=== PATIENT | male | born 1940 | race African-American/Black ===

== ENCOUNTER 2017-12-13 08:31 | Emergency (ER) | payer OTHER, MEDICAID ==
[~2017-12-13] VITALS: Ht 182.9 cm; Wt 94.0 kg
[~2017-12-13 08:31] MED LIST: ALLO300T2 PO; ASPI-1159 PO; ATOR40TA70 PO; COR25 PO; GABA-533 PO; LOSA100T14 PO; TICA90TA PO
[2017-12-13 10:40] LABS: BASOPHILS % 0.5 % (0.0-2.0); EOSINOPHILS % 1.6 % (0.0-5.0); HEMATOCRIT. 37.3 % (42.0-52.0); HEMOGLOBIN. 12.7 g/dL (14.0-18.0); LYMPHOCYTES % 10.3 % (20.0-50.0); MEAN CORPUSCULAR HEMOGLOBIN 29.3 pg (28.0-32.0); MEAN CORPUSCULAR VOLUME 86.4 fL (80.0-94.0); MEAN PLATELET VOLUME 7.4 fl (7.4-10.4); MONOCYTES % 5.7 % (2.0-8.0); NEUTROPHILS % 81.9 % (40.0-76.0); PLATELET 294 x1000/uL (130-400); RED BLOOD CELL COUNT 4.32 mill/uL (4.7-6.1); RED CELL DISTRIBUTION WIDTH 16.5 % (11.6-14.6)
[2017-12-13 10:46] LABS: INR 1.1; PROTHROMBIN TIME 11.2 sec (9.1-11.1)
[2017-12-13 10:47] LABS: CHLORIDE 104 mEq/L (98-107)
[2017-12-13] MEDS ORDERED: CLONIDINE 0.1MG TABLET PO ONE (13:15)
[2017-12-13] MEDS ORDERED: HYDRALAZINE 20MG/ML VIAL IV PRN (13:15)
[2017-12-13] MEDS ORDERED: APIXABAN 5 MG TABLET PO STA (14:43)
[2017-12-13] MEDS ORDERED: APIXABAN 5 MG TABLET PO SCH (14:45)
[2017-12-13 15:18] LABS: BG BASE EXCESS 0.6 mmol/L (-2.0-2.0); BG CARBOXYHEMOGLOBIN 0.2 % (0.5-1.5); BG DEOXYHEMOGLOBIN 4.5 % (0.0-5.0); BG FRACTION INSPIRED OXYGEN 21; BG HCO3 ACT 23.8 mmol/L (22.0-26.0); BG METHEMOGLOBIN 0.3 % (0.0-1.5); BG OXYGEN SATURATION 95.5 % (92.0-98.5); BG PCO2 33.7 mmHg (35.0-45.0); BG PH 7.467 (7.350-7.450); BG PO2 78.8 mmHg (75.0-100.0); BG SAMPLE SITE RIGHT BRACHIAL; BG TOTAL HEMOGLOBIN 13.2 g/dL (12.0-18.0); BG VENT MODE ROOM AIR
[2017-12-13 15:49] VITALS: BP 168/78
== END 2017-12-13 15:52 | disposition home or self-care (01) ==
LOC: ER 08:50
DX: J44.1 Chronic obstructive pulmonary disease with (acute) exacerbation (principal); R06.00 Dyspnea, unspecified; I11.0 Hypertensive heart disease with heart failure; I50.33 Acute on chronic diastolic (congestive) heart failure; R74.0 Nonspecific elevation of levels of transaminase and lactic acid dehydrogenase [LDH]; N28.89 Other specified disorders of kidney and ureter; N39.0 Urinary tract infection, site not specified; B96.1 Klebsiella pneumoniae [K. pneumoniae] as the cause of diseases classified elsewhere; E78.00 Pure hypercholesterolemia, unspecified; I25.2 Old myocardial infarction; Z86.73 Personal history of transient ischemic attack (TIA), and cerebral infarction without residual deficits; Z86.711 Personal history of pulmonary embolism; Z85.46 Personal history of malignant neoplasm of prostate; Z95.5 Presence of coronary angioplasty implant and graft; Z79.82 Long term (current) use of aspirin; Z79.01 Long term (current) use of anticoagulants
CPT/HCPCS: 36415; 36600; 71045; 80053; 82375; 82805; 83880; 84484; 85025; 85610; 93005; 96374; 99285; J0360

== ENCOUNTER 2018-01-08 12:06 | Emergency (ER) | payer OTHER, MEDICAID ==
[~2018-01-08] VITALS: Ht 182.9 cm; Wt 89.0 kg
[2018-01-08 14:33] VITALS: BP 128/78
== END 2018-01-08 14:52 | disposition home or self-care (01) ==
LOC: ER 12:06
DX: K62.5 Hemorrhage of anus and rectum (principal); K59.00 Constipation, unspecified; I10 Essential (primary) hypertension; Z98.890 Other specified postprocedural states; Z79.82 Long term (current) use of aspirin; Z79.899 Other long term (current) drug therapy
CPT/HCPCS: 99283

== ENCOUNTER 2019-01-01 10:20 | Emergency (ER) | payer OTHER, MEDICAID ==
[~2019-01-01] VITALS: Ht 182.9 cm; Wt 90.0 kg
[~2019-01-01 10:20] MED LIST changes: -ASPI-1159 PO; +ASPI-1393 PO; -LOSA100T14 PO; +LOSA100T32 PO
[2019-01-01] MEDS ORDERED: TRAMADOL 50MG TABLET PO ONE (11:30)
[2019-01-01 11:45] VITALS: BP 131/62
== END 2019-01-01 12:04 | disposition home or self-care (01) ==
LOC: ER 10:20
DX: M79.18 Myalgia, other site (principal); M54.5 Low back pain; R10.31 Right lower quadrant pain; R10.32 Left lower quadrant pain; I11.9 Hypertensive heart disease without heart failure; I25.2 Old myocardial infarction; Z79.82 Long term (current) use of aspirin; Z79.899 Other long term (current) drug therapy
CPT/HCPCS: 99283

== ENCOUNTER 2019-01-24 08:54 | Emergency (ER) | payer OTHER, MEDICAID ==
[~2019-01-24] VITALS: Ht 182.9 cm; Wt 97.0 kg
[2019-01-24 11:35] LABS: BASOPHILS % 0.7 % (0.0-2.0); EOSINOPHILS % 2.1 % (0.0-5.0); HEMATOCRIT. 37.8 % (42.0-52.0); HEMOGLOBIN. 12.7 g/dL (14.0-18.0); MEAN CORPUSCULAR HEMOGLOBIN 29.5 pg (28.0-32.0); MEAN PLATELET VOLUME 7.3 fl (7.4-10.4); MONOCYTES % 6.5 % (2.0-8.0); NEUTROPHILS % 72.7 % (40.0-76.0); PLATELET 240 x1000/uL (130-400); RED CELL DISTRIBUTION WIDTH 15.8 % (11.6-14.6)
[2019-01-24 11:41] LABS: CHLORIDE 107 mEq/L (98-107)
[2019-01-24 11:59] LABS: CLARITY URINE CLEAR (CLEAR); COLOR URINE YELLOW (YELLOW); KETONES URINE NEGATIVE (NEGATIVE); LEUKOCYTE ESTERASE URINE NEGATIVE (NEGATIVE); NITRITE URINE NEGATIVE (NEGATIVE); OCCULT BLOOD URINE NEGATIVE (NEGATIVE); PROTEIN URINE NEGATIVE (NEGATIVE); SPECIFIC GRAVITY URINE 1.006 (1.005-1.030); UROBILINOGEN URINE 0.2 E.U./dL (0.2-1.0)
[2019-01-24 13:33] VITALS: BP 153/85
== END 2019-01-24 13:42 | disposition home or self-care (01) ==
LOC: ER 08:54
DX: R35.0 Frequency of micturition (principal); R10.30 Lower abdominal pain, unspecified; R11.0 Nausea; I25.2 Old myocardial infarction; I11.9 Hypertensive heart disease without heart failure; Z79.82 Long term (current) use of aspirin; Z79.899 Other long term (current) drug therapy
CPT/HCPCS: 36415; 81003; 99283

== ENCOUNTER 2019-03-16 08:55 | Emergency (ER) | payer OTHER, MEDICAID ==
[~2019-03-16] VITALS: Ht 177.8 cm; Wt 91.0 kg
[2019-03-16] MEDS ORDERED: MORPHINE SULFATE 4 MG/ML CPJ (NOT FOR IM USE) IV STA (10:56)
[2019-03-16] MEDS ORDERED: ONDANSETRON HCL 4MG/2ML INJ IV STA (10:56)
[2019-03-16] MEDS ORDERED: VANCOMYCIN 1 G PREMIX 200 ML IV SCH (11:00)
[2019-03-16] MEDS ORDERED: PIPERACILLIN/TAZ 3.375G PREMIX 50 ML IV ONE (11:00)
[2019-03-16 12:53] LABS: BASOPHILS % 0.9 % (0.0-2.0); EOSINOPHILS % 1.8 % (0.0-5.0); HEMATOCRIT. 38.3 % (42.0-52.0); HEMOGLOBIN. 13.2 g/dL (14.0-18.0); MEAN CORPUSCULAR HEMOGLOBIN 30.2 pg (28.0-32.0); MEAN CORPUSCULAR VOLUME 87.6 fL (80.0-94.0); MEAN PLATELET VOLUME 8.6 fl (7.4-10.4); MONOCYTES % 6.5 % (2.0-8.0); NEUTROPHILS % 72.8 % (40.0-76.0); PLATELET 333 x1000/uL (130-400); RED BLOOD CELL COUNT 4.37 mill/uL (4.7-6.1); RED CELL DISTRIBUTION WIDTH 16.1 % (11.6-14.6)
[2019-03-16 12:57] LABS: CHLORIDE 104 mEq/L (98-107)
[2019-03-16 12:59] LABS: PARTIAL THROMBOPLASTIN TIME 28.7 sec (23.4-31.0); PROTHROMBIN TIME 10.7 sec (9.6-11.0)
[2019-03-16 14:54] VITALS: BP 138/78
== END 2019-03-16 14:53 | disposition home or self-care (01) ==
LOC: ER 08:55
DX: L03.116 Cellulitis of left lower limb (principal); I25.10 Atherosclerotic heart disease of native coronary artery without angina pectoris; I25.2 Old myocardial infarction; I10 Essential (primary) hypertension; N40.0 Benign prostatic hyperplasia without lower urinary tract symptoms; Z79.82 Long term (current) use of aspirin; Z86.711 Personal history of pulmonary embolism
CPT/HCPCS: 36415; 80053; 85025; 85610; 85730; 87040; 93971; 96365; 96368; 96375; 99284; J2270; J2405; J2543; J3370

== ENCOUNTER 2019-04-13 08:46 | Inpatient (IN) | payer OTHER, MEDICAID ==
[~2019-04-13] VITALS: Ht 182.9 cm; Wt 104.8 kg
[~2019-04-13 08:46] MED LIST changes: -ASPI-1393 PO; +ASPI-1497 PO
[2019-04-13] MEDS ORDERED: CLINDAMYCIN 600 MG in DEXTROSE 5% WATER 50 ML IV ONE (13:30)
[2019-04-13] MEDS ORDERED: CLINDAMYCIN 600MG PREMIX 50 ML IV ONE (14:00)
[2019-04-13 14:35] LABS: BASOPHILS % 0.4 % (0.0-2.0); EOSINOPHILS % 1.8 % (0.0-5.0); HEMATOCRIT. 34.8 % (42.0-52.0); HEMOGLOBIN. 11.8 g/dL (14.0-18.0); LYMPHOCYTES % 12.2 % (20.0-50.0); MEAN CORPUSCULAR HEMOGLOBIN 29.5 pg (28.0-32.0); MEAN CORPUSCULAR VOLUME 87.4 fL (80.0-94.0); MEAN PLATELET VOLUME 6.8 fl (7.4-10.4); MONOCYTES % 6.5 % (2.0-8.0); NEUTROPHILS % 79.1 % (40.0-76.0); PLATELET 242 x1000/uL (130-400); RED BLOOD CELL COUNT 3.98 mill/uL (4.7-6.1); RED CELL DISTRIBUTION WIDTH 16.5 % (11.6-14.6)
[2019-04-13 14:45] LABS: CHLORIDE 106 mEq/L (98-107)
[2019-04-13 15:09] LABS: INR 1.1; PROTHROMBIN TIME 11.1 sec (9.6-11.0)
[2019-04-13] MEDS: LOSARTAN POTASSIUM 100 MG TABLET PO SCH (16:00)
[2019-04-13] MEDS: ASPIRIN 81MG TABLET PO SCH (16:00)
[2019-04-13] MEDS: CARVEDILOL 12.5MG TABLET PO SCH ×2 (16:00→21:00)
[2019-04-13] MEDS ORDERED: ONDANSETRON HCL 4MG/2ML INJ IV PRN (16:15)
[2019-04-13] MEDS ORDERED: IPRATROPIUM/ALBUTEROL 0.5-3(2.5)MG/3ML NEB HHN PRN (16:15)
[2019-04-13] MEDS ORDERED: ACETAMINOPHEN 325MG TABLET PO PRN (16:15)
[2019-04-13] MEDS: PIPERACILLIN SODIUM/TAZOBACTAM 4.5 G in DEXT 5% WATER 100 ML IV SCH (16:30)
[2019-04-13] MEDS ORDERED: ENOXAPARIN 40MG/0.4ML SYR SUBCUT SCH (16:45)
[2019-04-13] MEDS: FUROSEMIDE 40MG TABLET PO SCH (16:51)
[2019-04-13] MEDS: TICAGRELOR 90 MG TABLET PO SCH (17:00)
[2019-04-13] MEDS ORDERED: VANCOMYCIN 1,500 MG in SODIUM CHLORIDE 0.9% 250 ML IV SCH (17:30)
[2019-04-13] MEDS: HYDROCODONE/ACETAMINOPHEN 5/325MG TABLET PO PRN (18:19)
[2019-04-14] VITALS (7 sets, daily range): BP systolic 123–158; BP diastolic 63–96
[2019-04-14] MEDS: HYDROCODONE/ACETAMINOPHEN 5/325MG TABLET PO PRN (01:57)
[2019-04-14] MEDS: CARVEDILOL 12.5MG TABLET PO SCH ×2 (08:36→21:14)
[2019-04-14] MEDS: ASPIRIN 81MG TABLET PO SCH (08:36)
[2019-04-14] MEDS: LOSARTAN POTASSIUM 100 MG TABLET PO SCH (08:37)
[2019-04-14] MEDS: FUROSEMIDE 40MG TABLET PO SCH (08:37)
[2019-04-14] MEDS: TICAGRELOR 90 MG TABLET PO SCH ×2 (08:39→08:40)
[2019-04-14] MEDS ORDERED: APIX2.5T MT (09:52)
[2019-04-14] MEDS ORDERED: APIXABAN 5 MG TABLET PO SCH (11:15)
[2019-04-14] MEDS: VANCOMYCIN 1 G PREMIX 200 ML IV SCH (12:14)
[2019-04-14] MEDS: ENOXAPARIN 40MG/0.4ML SYR SUBCUT SCH (15:35)
[2019-04-14] MEDS: PIPERACILLIN SODIUM/TAZOBACTAM 4.5 G in DEXT 5% WATER 100 ML IV SCH (16:47)
[2019-04-14] MEDS ORDERED: FUROSEMIDE 40MG/4ML VIAL IVP NR (18:00)
[2019-04-14] MEDS: ATORVASTATIN CALCIUM 20MG TABLET PO SCH (21:14)
[2019-04-15] VITALS: BP 125/60
[2019-04-15] MEDS: VANCOMYCIN 1 G PREMIX 200 ML IV SCH ×2 (00:17→13:32)
[2019-04-15 04:00] VITALS: BP 129/58
[2019-04-15 07:59] LABS: COLOR URINE YELLOW (YELLOW); KETONES URINE NEGATIVE (NEGATIVE); LEUKOCYTE ESTERASE URINE NEGATIVE (NEGATIVE); NITRITE URINE NEGATIVE (NEGATIVE); OCCULT BLOOD URINE NEGATIVE (NEGATIVE); PROTEIN URINE NEGATIVE (NEGATIVE); SPECIFIC GRAVITY URINE 1.022 (1.005-1.030)
[2019-04-15 08:00] VITALS: BP 132/66
[2019-04-15 08:02] LABS: CLARITY URINE SL HAZY (CLEAR)
[2019-04-15] MEDS: ASPIRIN 81MG TABLET PO SCH (09:00)
[2019-04-15] MEDS: CARVEDILOL 12.5MG TABLET PO SCH ×2 (09:58→21:28)
[2019-04-15] MEDS: FUROSEMIDE 40MG TABLET PO SCH (09:58)
[2019-04-15] MEDS: LOSARTAN POTASSIUM 100 MG TABLET PO SCH (09:58)
[2019-04-15] MEDS ORDERED: LIDOCAINE HCL 1% 20ML VIAL (Pyxis) INJ ONE (11:12)
[2019-04-15 12:00] VITALS: BP 132/56
[2019-04-15] MEDS: HYDROCODONE/ACETAMINOPHEN 5/325MG TABLET PO PRN (13:33)
[2019-04-15] MEDS ORDERED: IOHEXOL-350 100 ML BOTTLE ONE (13:40)
[2019-04-15 16:00] VITALS: BP 138/69
[2019-04-15] MEDS: ENOXAPARIN 40MG/0.4ML SYR SUBCUT SCH (17:34)
[2019-04-15 20:00] VITALS: BP 149/72
[2019-04-15] MEDS: ATORVASTATIN CALCIUM 20MG TABLET PO SCH (21:27)
[2019-04-16] VITALS: BP 124/64
[2019-04-16 02:46] LABS: CHLORIDE 101 mEq/L (98-107)
[2019-04-16 02:53] LABS: LDL CHOLESTEROL 55 mg/dL (5-100)
[2019-04-16 02:54] LABS: HDL CHOLESTEROL 33 mg/dL (40-59)
[2019-04-16 02:55] LABS: T4 FREE 1.26 ng/dL (0.76-1.46)
[2019-04-16 04:00] VITALS: BP 142/66
[2019-04-16 04:19] LABS: BASOPHILS % 1.1 % (0.0-2.0); EOSINOPHILS % 0.4 % (0.0-5.0); HEMOGLOBIN. 11.8 g/dL (14.0-18.0); LYMPHOCYTES % 8.9 % (20.0-50.0); MEAN CORPUSCULAR HEMOGLOBIN 29.2 pg (28.0-32.0); MEAN PLATELET VOLUME 7.1 fl (7.4-10.4); MONOCYTES % 9.1 % (2.0-8.0); NEUTROPHILS % 80.5 % (40.0-76.0); PLATELET 271 x1000/uL (130-400); RED BLOOD CELL COUNT 4.02 mill/uL (4.7-6.1); RED CELL DISTRIBUTION WIDTH 16.4 % (11.6-14.6)
[2019-04-16 04:24] LABS: CHLORIDE 102 mEq/L (98-107)
[2019-04-16 08:00] VITALS: BP 161/69
[2019-04-16] MEDS: LOSARTAN POTASSIUM 100 MG TABLET PO SCH (08:57)
[2019-04-16] MEDS: CARVEDILOL 12.5MG TABLET PO SCH ×2 (08:58→20:35)
[2019-04-16] MEDS: VANCOMYCIN 1 G PREMIX 200 ML IV SCH ×3 (08:59→20:44)
[2019-04-16] MEDS: FUROSEMIDE 40MG TABLET PO SCH (08:59)
[2019-04-16] MEDS: ASPIRIN 81MG TABLET PO SCH (08:59)
[2019-04-16] MEDS: HYDROCODONE/ACETAMINOPHEN 5/325MG TABLET PO PRN ×2 (10:21→17:14)
[2019-04-16 12:00] VITALS: BP 135/70
[2019-04-16] MEDS ORDERED: MORPHINE SULFATE 2 MG/ML CPJ (NOT FOR IM USE) IV PRN (12:30)
[2019-04-16] MEDS: SODIUM CHLORIDE 0.45% 1,000 ML IV SCH (15:38)
[2019-04-16 16:00] VITALS: BP 154/65
[2019-04-16 20:00] VITALS: BP 123/62
[2019-04-16] MEDS: ATORVASTATIN CALCIUM 20MG TABLET PO SCH (20:35)
[2019-04-16] MEDS: ENOXAPARIN 30MG/0.3ML SYR SUBCUT SCH (20:40)
[2019-04-17] VITALS (8 sets, daily range): BP systolic 113–153; BP diastolic 47–87
[2019-04-17] MEDS: HYDROCODONE/ACETAMINOPHEN 5/325MG TABLET PO PRN ×2 (01:18→15:31)
[2019-04-17] MEDS: SODIUM CHLORIDE 0.45% 1,000 ML IV SCH ×2 (05:10→22:17)
[2019-04-17] MEDS ORDERED: HEPARIN SODIUM 1,000 UNIT/1ML VIAL IV ONE (08:55)
[2019-04-17] MEDS: LOSARTAN POTASSIUM 100 MG TABLET PO SCH (09:31)
[2019-04-17] MEDS: CARVEDILOL 12.5MG TABLET PO SCH ×2 (09:31→22:19)
[2019-04-17] MEDS: VANCOMYCIN 1 G PREMIX 200 ML IV SCH ×2 (09:31→22:17)
[2019-04-17] MEDS: ASPIRIN 81MG TABLET PO SCH (09:31)
[2019-04-17] MEDS: ENOXAPARIN 30MG/0.3ML SYR SUBCUT SCH ×2 (09:31→22:19)
[2019-04-17] MEDS ORDERED: IODIXANOL 320MG/ML 100 ML BOTTLE IV ONE (12:06)
[2019-04-17] MEDS ORDERED: LIDOCAINE HCL 1% 20ML VIAL (Pyxis) INJ ONE (12:07)
[2019-04-17] MEDS ORDERED: FENTANYL CITRATE/PF 50MCG/ML 2ML VIAL ONE (12:41)
[2019-04-17] MEDS ORDERED: MIDAZOLAM HCL 2 MG/2 ML VIAL ONE (12:41)
[2019-04-17] MEDS ORDERED: IOHEXOL-300 100 ML BOTTLE ONE (13:23)
[2019-04-17] MEDS: ATORVASTATIN CALCIUM 20MG TABLET PO SCH (22:17)
[2019-04-18] VITALS (7 sets, daily range): BP systolic 128–171; BP diastolic 56–68
[2019-04-18] MEDS: VANCOMYCIN 1 G PREMIX 200 ML IV SCH (09:39)
[2019-04-18] MEDS: ASPIRIN 81MG TABLET PO SCH ×2 (09:39→09:51)
[2019-04-18] MEDS: CARVEDILOL 12.5MG TABLET PO SCH ×2 (09:39→21:07)
[2019-04-18] MEDS: ENOXAPARIN 30MG/0.3ML SYR SUBCUT SCH (09:44)
[2019-04-18] MEDS: LOSARTAN POTASSIUM 100 MG TABLET PO SCH (09:46)
[2019-04-18 10:57] LABS: BASOPHILS % 0.3 % (0.0-2.0); EOSINOPHILS % 0.3 % (0.0-5.0); HEMATOCRIT. 30.6 % (42.0-52.0); HEMOGLOBIN. 10.6 g/dL (14.0-18.0); LYMPHOCYTES % 8.4 % (20.0-50.0); MEAN CORPUSCULAR HEMOGLOBIN 29.9 pg (28.0-32.0); MEAN CORPUSCULAR VOLUME 86.7 fL (80.0-94.0); MEAN PLATELET VOLUME 7.4 fl (7.4-10.4); MONOCYTES % 9.6 % (2.0-8.0); NEUTROPHILS % 81.4 % (40.0-76.0); PLATELET 249 x1000/uL (130-400); RED BLOOD CELL COUNT 3.53 mill/uL (4.7-6.1); RED CELL DISTRIBUTION WIDTH 16.3 % (11.6-14.6)
[2019-04-18 11:01] LABS: CHLORIDE 102 mEq/L (98-107)
[2019-04-18] MEDS: SODIUM CHLORIDE 0.9% 1,000 ML IV SCH (12:15)
[2019-04-18] MEDS: ATORVASTATIN CALCIUM 20MG TABLET PO SCH (21:05)
[2019-04-18] MEDS: AMLODIPINE 2.5MG TABLET PO SCH (21:07)
[2019-04-19] VITALS (7 sets, daily range): BP systolic 118–165; BP diastolic 66–80
[2019-04-19] MEDS ORDERED: BUPIVACAINE HCL/PF 0.5% (5MG/ML) 10ML ONE (07:06)
[2019-04-19] MEDS ORDERED: LIDOCAINE HCL 1% 20ML VIAL (Pyxis) INJ ONE (07:06)
[2019-04-19 07:44] LABS: HEMATOCRIT 28.3 % (42.0-52.0); HEMOGLOBIN 9.8 g/dL (14.0-18.0); MEAN CORPUSCULAR VOLUME 86.5 fL (80.0-94.0); PLATELET 255 x1000/uL (130-400); RED BLOOD CELL COUNT 3.28 mill/uL (4.7-6.1); RED CELL DISTRIBUTION WIDTH 16.1 % (11.6-14.6)
[2019-04-19 07:53] LABS: CHLORIDE 105 mEq/L (98-107)
[2019-04-19] MEDS ORDERED: CEFAZOLIN SODIUM 1000MG/VIAL ONE (07:57)
[2019-04-19] MEDS ORDERED: MIDAZOLAM HCL 2 MG/2 ML VIAL ONE (08:03)
[2019-04-19] MEDS: SODIUM CHLORIDE 0.9% 1,000 ML IV SCH (08:15)
[2019-04-19] MEDS ORDERED: SODIUM CHLORIDE 0.9% 1,000 ML IV ONE (08:34)
[2019-04-19] MEDS ORDERED: SODIUM HYPOCHLORITE (0.25%) 480ML SOLUTION (HALF STRENGTH) TOP NR (08:43)
[2019-04-19] MEDS ORDERED: MORPHINE SULFATE 2 MG/ML CPJ (NOT FOR IM USE) IV PRN (08:45)
[2019-04-19] MEDS ORDERED: HYDROMORPHONE HCL/PF 2MG/ML CPJ IV PRN (08:45)
[2019-04-19] MEDS ORDERED: ONDANSETRON HCL 4MG/2ML INJ IV PRN (08:45)
[2019-04-19] MEDS ORDERED: SKIN ADHESIVE 0.7 GM EA TOP ONE (09:31)
[2019-04-19] MEDS ORDERED: POTASSIUM CHLORIDE 20MEQ TABLET SR PO NR (10:45)
[2019-04-19] MEDS: ASPIRIN 81MG TABLET PO SCH (12:37)
[2019-04-19] MEDS: LOSARTAN POTASSIUM 100 MG TABLET PO SCH (12:37)
[2019-04-19] MEDS: CARVEDILOL 12.5MG TABLET PO SCH (12:40)
[2019-04-19] MEDS: AMLODIPINE 2.5MG TABLET PO SCH (12:41)
[2019-04-19] MEDS ORDERED: PIPERACILLIN/TAZOBACTAM 2.25 G in DEXTROSE 5% WATER 50 ML IV SCH (16:00)
[2019-04-19] MEDS ORDERED: CEFEPIME 1,000 MG in DEXTROSE 5% WATER 50 ML IV SCH (17:00)
== END 2019-04-19 18:12 | disposition home or self-care (01) | DRG 622 ==
LOC: ER 08:46 → 5WST 14:22 → EDBEDREQ 14:28 → ENRESERV 23:07 → 3WST 04-17 14:13
PROVIDERS: ADMIT Internal Medicine; ATTEND Internal Medicine
PROC: 02HV33Z Insertion of Infusion Device into Superior Vena Cava, Percutaneous Approach (ICD-10-PCS; 2019-04-15)
PROC: B548ZZA Ultrasonography of Superior Vena Cava, Guidance (ICD-10-PCS; 2019-04-15)
PROC: B5181ZA Fluoroscopy of Superior Vena Cava using Low Osmolar Contrast, Guidance (ICD-10-PCS; 2019-04-15)
PROC: 047D3ZZ Dilation of Left Common Iliac Artery, Percutaneous Approach (ICD-10-PCS; principal; 2019-04-17)
PROC: 047L3ZZ Dilation of Left Femoral Artery, Percutaneous Approach (ICD-10-PCS; 2019-04-17)
PROC: 047N3ZZ Dilation of Left Popliteal Artery, Percutaneous Approach (ICD-10-PCS; 2019-04-17)
PROC: 04HK33Z Insertion of Infusion Device into Right Femoral Artery, Percutaneous Approach (ICD-10-PCS; 2019-04-17)
PROC: 04HL33Z Insertion of Infusion Device into Left Femoral Artery, Percutaneous Approach (ICD-10-PCS; 2019-04-17)
PROC: B41G1ZZ Fluoroscopy of Left Lower Extremity Arteries using Low Osmolar Contrast (ICD-10-PCS; 2019-04-17)
PROC: 0JBP0ZZ Excision of Left Lower Leg Subcutaneous Tissue and Fascia, Open Approach (ICD-10-PCS; 2019-04-19)
DX: E11.622 Type 2 diabetes mellitus with other skin ulcer (principal); I50.33 Acute on chronic diastolic (congestive) heart failure; E11.52 Type 2 diabetes mellitus with diabetic peripheral angiopathy with gangrene; L03.116 Cellulitis of left lower limb; L03.115 Cellulitis of right lower limb; E66.2 Morbid (severe) obesity with alveolar hypoventilation; L97.929 Non-pressure chronic ulcer of unspecified part of left lower leg with unspecified severity; I74.5 Embolism and thrombosis of iliac artery; D64.9 Anemia, unspecified; E78.5 Hyperlipidemia, unspecified; I11.0 Hypertensive heart disease with heart failure; I25.10 Atherosclerotic heart disease of native coronary artery without angina pectoris; I25.2 Old myocardial infarction; E11.42 Type 2 diabetes mellitus with diabetic polyneuropathy; I70.8 Atherosclerosis of other arteries; I87.8 Other specified disorders of veins; R74.0 Nonspecific elevation of levels of transaminase and lactic acid dehydrogenase [LDH]; F19.10 Other psychoactive substance abuse, uncomplicated; F10.10 Alcohol abuse, uncomplicated; Z85.528 Personal history of other malignant neoplasm of kidney; Z86.711 Personal history of pulmonary embolism; Z86.73 Personal history of transient ischemic attack (TIA), and cerebral infarction without residual deficits; Z95.5 Presence of coronary angioplasty implant and graft; Z68.31 Body mass index [BMI] 31.0-31.9, adult; Z87.891 Personal history of nicotine dependence; Z85.46 Personal history of malignant neoplasm of prostate; Z90.5 Acquired absence of kidney; Z79.899 Other long term (current) drug therapy; Z79.82 Long term (current) use of aspirin
CPT/HCPCS: 36415; 36573; 37220; 37224; 71045; 73030; 73590; 75635; 75710; 76937; 80048; 80053; 80061; 80202; 81003; 82962; 83036; 83735; 83880; 84439; 84443; 84484; 85025; 85027; 85347; 87070; 87075; 87077; 87186; 88304; 93005; 93306; 93923; 93970; 96365; 96367; 97110; 97163; 99285; C1725; C1760; C1769; C1893; C1894; J0690; J0692; J1644; J1650; J1940; J2250; J2270; J2543; J3010; J3370; J3490; J7030; J7040; J7050; J7060; Q9967; J8499

== ENCOUNTER 2020-09-30 14:01 | Inpatient (IN) | payer MEDICARE, MEDICAID ==
[~2020-09-30] VITALS: Ht 167.6 cm; Wt 86.2 kg
[~2020-09-30 14:01] MED LIST changes: +APIX2.5T MT
[2020-09-30] MEDS ORDERED: SODIUM CHLORIDE 0.9% 1,000 ML IV ONE (15:15)
[2020-09-30] MEDS ORDERED: METRONIDAZOLE 500 MG PREMIX 100 ML IV ONE (16:45)
[2020-09-30] MEDS ORDERED: VANCOMYCIN 1 G PREMIX 200 ML IV SCH (16:45)
[2020-09-30] MEDS ORDERED: CEFTRIAXONE 1 G PREMIX 50 ML IV ONE (16:45)
[2020-09-30 17:16] LABS: HEMATOCRIT. 28.8 % (42.0-52.0); MEAN CORPUSCULAR HEMOGLOBIN 28.9 pg (28.0-32.0); MEAN CORPUSCULAR VOLUME 83.7 fL (80.0-94.0); MEAN PLATELET VOLUME 7.1 fl (7.4-10.4); PLATELET 378 x1000/uL (130-400); RED BLOOD CELL COUNT 3.45 mill/uL (4.7-6.1); RED CELL DISTRIBUTION WIDTH 16.9 % (11.6-14.6)
[2020-09-30 17:23] LABS: CHLORIDE 104 mEq/L (98-107)
[2020-09-30 17:25] LABS: INR 1.2
[2020-09-30 17:34] LABS: PLATELET ESTIMATE NORMAL
[2020-09-30] MEDS ORDERED: MORPHINE SULFATE 4 MG/ML CPJ (NOT FOR IM USE) IV ONE (18:30)
[2020-09-30 20:00] VITALS: BP 108/41
[2020-09-30 21:15] VITALS: BP 108/41
[2020-10-01] VITALS: BP 96/46
[2020-10-01] MEDS ORDERED: POTASSIUM CHLORIDE 20MEQ/PACKET PO SCH
[2020-10-01] MEDS ORDERED: MORPHINE SULFATE 2 MG/ML CPJ (NOT FOR IM USE) IV PRN
[2020-10-01] MEDS ORDERED: ONDANSETRON HCL 4MG/2ML INJ IV PRN
[2020-10-01] MEDS: PIPERACILLIN/TAZOBACTAM 2.25 G in DEXTROSE 5% WATER 50 ML IV SCH ×5 (01:00→23:57)
[2020-10-01] MEDS ORDERED: PIPERACILLIN/TAZOBACTAM 3.375 G in DEXTROSE 5% WATER 50 ML IV SCH (01:00)
[2020-10-01] MEDS: SODIUM CHLORIDE 0.9% 1,000 ML IV SCH ×3 (01:00→21:33)
[2020-10-01] MEDS ORDERED: VANCOMYCIN 1 G PREMIX 200 ML IV SCH ×2 (02:00→21:00)
[2020-10-01] MEDS ORDERED: FAMO20TA8 PO (03:52)
[2020-10-01] MEDS ORDERED: MIRT15TA6 PO (03:52)
[2020-10-01 04:00] VITALS: BP 112/53
[2020-10-01] MEDS ORDERED: PIPERACILLIN/TAZOBACTAM 3.375 G/VIAL IV SCH (06:00)
[2020-10-01 08:00] VITALS: BP 101/46
[2020-10-01] MEDS ORDERED: LIDOCAINE HCL 1% 20ML VIAL (Pyxis) INJ ONE (08:45)
[2020-10-01] MEDS ORDERED: ENOXAPARIN 40MG/0.4ML SYR SUBCUT SCH (09:00)
[2020-10-01] MEDS ORDERED: ENOXAPARIN 30MG/0.3ML SYR SUBCUT SCH ×2 (09:00)
[2020-10-01] MEDS ORDERED: IOHEXOL-300 50 ML BOTTLE IV ONE (09:40)
[2020-10-01 12:00] VITALS: BP 108/50
[2020-10-01] MEDS: FAMOTIDINE 20MG TABLET PO SCH (13:20)
[2020-10-01 16:00] VITALS: BP 118/58
[2020-10-01 18:07] LABS: HEMATOCRIT. 26.5 % (42.0-52.0); MEAN CORPUSCULAR HEMOGLOBIN 28.7 pg (28.0-32.0); MEAN CORPUSCULAR VOLUME 84.5 fL (80.0-94.0); MEAN PLATELET VOLUME 7.4 fl (7.4-10.4); PLATELET 344 x1000/uL (130-400); RED BLOOD CELL COUNT 3.13 mill/uL (4.7-6.1)
[2020-10-01 19:15] LABS: PLATELET ESTIMATE NORMAL
[2020-10-01 20:00] VITALS: BP 120/59
[2020-10-01] MEDS ORDERED: HEPARIN 80 UNITS/KG BOLUS IV SCH ×2 (21:15→22:15)
[2020-10-01] MEDS ORDERED: HEPARIN 25,000 UNITS PREMIX 250 ML IV SCH (21:15)
[2020-10-01] MEDS ORDERED: HEPARIN BOLUS PRN aPTT 37-44 IV ×2 (21:15→22:03)
[2020-10-01] MEDS ORDERED: HEPARIN BOLUS PRN aPTT <36 IV ×2 (21:15→22:02)
[2020-10-01] MEDS: VANCOMYCIN 750 MG PREMIX 150 ML IV SCH (21:33)
[2020-10-01 21:42] LABS: INR 1.2; PARTIAL THROMBOPLASTIN TIME 30.2 sec (23.4-31.0); PROTHROMBIN TIME 12.8 sec (9.6-11.0)
[2020-10-01] MEDS ORDERED: POTASSIUM CHLORIDE INJ 40 MEQ in DEXT 5% WATER 250 ML IV ONE (22:30)
[2020-10-02] VITALS: BP 122/68
[2020-10-02 04:00] VITALS: BP 130/48
[2020-10-02] MEDS: PIPERACILLIN/TAZOBACTAM 2.25 G in DEXTROSE 5% WATER 50 ML IV SCH ×4 (06:00→23:57)
[2020-10-02] MEDS: SODIUM CHLORIDE 0.9% 1,000 ML IV SCH ×2 (06:35→17:00)
[2020-10-02] MEDS: FAMOTIDINE 20MG TABLET PO SCH (09:14)
[2020-10-02] MEDS ORDERED: LIDOCAINE HCL 1% 20ML VIAL (Pyxis) INJ ONE (09:44)
[2020-10-02 16:00] VITALS: BP 118/86
[2020-10-02] MEDS: ENOXAPARIN 80MG/0.8ML SYR SUBCUT SCH (18:20)
[2020-10-02] MEDS: VANCOMYCIN 750 MG PREMIX 150 ML IV SCH (20:23)
[2020-10-02 21:02] LABS: HEMATOCRIT. 25.2 % (42.0-52.0); HEMOGLOBIN. 8.6 g/dL (14.0-18.0); MEAN CORPUSCULAR HEMOGLOBIN 28.7 pg (28.0-32.0); MEAN PLATELET VOLUME 7.4 fl (7.4-10.4); PLATELET 172 x1000/uL (130-400); RED CELL DISTRIBUTION WIDTH 17.3 % (11.6-14.6)
[2020-10-02 21:11] LABS: CHLORIDE 110 mEq/L (98-107)
[2020-10-02 21:29] LABS: PLATELET ESTIMATE NORMAL
[2020-10-02] MEDS ORDERED: POTASSIUM CHLORIDE INJ 40 MEQ in DEXT 5% WATER 250 ML IV NR (23:45)
[2020-10-02] MEDS: LORAZEPAM 2MG/ML CPJ IV PRN (23:57)
[2020-10-03 04:00] VITALS: BP 114/45
[2020-10-03] MEDS: PIPERACILLIN/TAZOBACTAM 2.25 G in DEXTROSE 5% WATER 50 ML IV SCH ×3 (06:05→17:56)
[2020-10-03] MEDS: SODIUM CHLORIDE 0.9% 1,000 ML IV SCH ×3 (06:06→22:49)
[2020-10-03 06:18] LABS: HEMATOCRIT. 24.4 % (42.0-52.0); HEMOGLOBIN. 8.4 g/dL (14.0-18.0); MEAN CORPUSCULAR HEMOGLOBIN 28.9 pg (28.0-32.0); MEAN CORPUSCULAR VOLUME 83.4 fL (80.0-94.0); MEAN PLATELET VOLUME 6.8 fl (7.4-10.4); PLATELET 338 x1000/uL (130-400); RED BLOOD CELL COUNT 2.92 mill/uL (4.7-6.1); RED CELL DISTRIBUTION WIDTH 17.2 % (11.6-14.6)
[2020-10-03 06:29] LABS: CHLORIDE 110 mEq/L (98-107)
[2020-10-03 07:54] VITALS: BP 136/52
[2020-10-03] MEDS: ENOXAPARIN 80MG/0.8ML SYR SUBCUT SCH ×2 (08:56→20:49)
[2020-10-03] MEDS: FAMOTIDINE 20MG TABLET PO SCH (09:43)
[2020-10-03] MEDS: VANCOMYCIN 750 MG PREMIX 150 ML IV SCH ×2 (12:07→22:48)
[2020-10-03 12:30] VITALS: BP 109/49
[2020-10-03 16:08] LABS: PLATELET ESTIMATE NORMAL
[2020-10-03 16:09] VITALS: BP 118/60
[2020-10-03 20:00] VITALS: BP 137/53
[2020-10-04] VITALS: BP 139/50
[2020-10-04] MEDS: PIPERACILLIN/TAZOBACTAM 2.25 G in DEXTROSE 5% WATER 50 ML IV SCH ×3 (00:34→12:20)
[2020-10-04 04:00] VITALS: BP 129/48
[2020-10-04 08:01] VITALS: BP 153/66
[2020-10-04] MEDS: FAMOTIDINE 20MG TABLET PO SCH (09:12)
[2020-10-04] MEDS: ENOXAPARIN 80MG/0.8ML SYR SUBCUT SCH ×2 (09:12→21:45)
[2020-10-04] MEDS: SODIUM CHLORIDE 0.9% 1,000 ML IV SCH (09:18)
[2020-10-04 11:04] LABS: HEMATOCRIT. 22.3 % (42.0-52.0); MEAN CORPUSCULAR HEMOGLOBIN 29.6 pg (28.0-32.0); MEAN CORPUSCULAR VOLUME 82.7 fL (80.0-94.0); MEAN PLATELET VOLUME 6.3 fl (7.4-10.4); PLATELET 351 x1000/uL (130-400); RED CELL DISTRIBUTION WIDTH 17.2 % (11.6-14.6)
[2020-10-04] MEDS: VANCOMYCIN 750 MG PREMIX 150 ML IV SCH (11:11)
[2020-10-04 11:16] LABS: CHLORIDE 113 mEq/L (98-107)
[2020-10-04 12:14] VITALS: BP 148/69
[2020-10-04] MEDS: MEROPENEM 1,000 MG in SODIUM CHLORIDE 0.9% 100 ML IV SCH ×2 (15:10→21:46)
[2020-10-04 15:27] LABS: PLATELET ESTIMATE NORMAL
[2020-10-04 15:44] VITALS: BP 154/60
[2020-10-04] MEDS ORDERED: POTASSIUM CHLORIDE 20MEQ TABLET SR PO SCH (18:00)
[2020-10-04] MEDS ORDERED: PIPERACILLIN/TAZOBACTAM 3.375G in DEXT 5% WATER 50ML IV SCH (18:00)
[2020-10-04 20:00] VITALS: BP 90/64
[2020-10-05] VITALS (8 sets, daily range): BP systolic 128–156; BP diastolic 49–90
[2020-10-05] MEDS: SODIUM CHLORIDE 0.9% 1,000 ML IV SCH ×3 (02:12→15:03)
[2020-10-05] MEDS: VANCOMYCIN 750 MG PREMIX 150 ML IV SCH ×3 (02:12→23:37)
[2020-10-05] MEDS: MEROPENEM 1,000 MG in SODIUM CHLORIDE 0.9% 100 ML IV SCH ×3 (06:00→21:58)
[2020-10-05 07:40] LABS: BASOPHILS % 0.2 % (0.0-2.0); HEMATOCRIT. 24.4 % (42.0-52.0); HEMOGLOBIN. 8.4 g/dL (14.0-18.0); LYMPHOCYTES % 8.6 % (20.0-50.0); MEAN CORPUSCULAR HEMOGLOBIN 28.8 pg (28.0-32.0); MEAN CORPUSCULAR VOLUME 84.1 fL (80.0-94.0); MEAN PLATELET VOLUME 6.5 fl (7.4-10.4); MONOCYTES % 6.2 % (2.0-8.0); PLATELET 376 x1000/uL (130-400); RED CELL DISTRIBUTION WIDTH 17.1 % (11.6-14.6)
[2020-10-05 07:41] LABS: CHLORIDE 116 mEq/L (98-107)
[2020-10-05] MEDS: FAMOTIDINE 20MG TABLET PO SCH (09:02)
[2020-10-05] MEDS: ENOXAPARIN 80MG/0.8ML SYR SUBCUT SCH ×2 (09:02→21:58)
[2020-10-06] VITALS (7 sets, daily range): BP systolic 118–160; BP diastolic 56–69
[2020-10-06] MEDS: LORAZEPAM 2MG/ML CPJ IV PRN (01:03)
[2020-10-06] MEDS: SODIUM CHLORIDE 0.9% 1,000 ML IV SCH ×3 (01:03→23:53)
[2020-10-06] MEDS: MEROPENEM 1,000 MG in SODIUM CHLORIDE 0.9% 100 ML IV SCH ×3 (06:54→21:02)
[2020-10-06] MEDS: FAMOTIDINE 20MG TABLET PO SCH (08:42)
[2020-10-06] MEDS: ENOXAPARIN 80MG/0.8ML SYR SUBCUT SCH (08:43)
[2020-10-06] MEDS: VANCOMYCIN 750 MG PREMIX 150 ML IV SCH ×2 (11:30→23:53)
[2020-10-07] VITALS (10 sets, daily range): BP systolic 96–174; BP diastolic 48–75
[2020-10-07] MEDS: MEROPENEM 1,000 MG in SODIUM CHLORIDE 0.9% 100 ML IV SCH ×3 (06:21→21:16)
[2020-10-07] MEDS ORDERED: HYDRALAZINE 20MG/ML VIAL IV SCH (06:30)
[2020-10-07] MEDS: FAMOTIDINE 20MG TABLET PO SCH (08:46)
[2020-10-07] MEDS: SODIUM CHLORIDE 0.9% 1,000 ML IV SCH ×2 (08:49→16:46)
[2020-10-07 10:16] LABS: HEMATOCRIT. 25.5 % (42.0-52.0); HEMOGLOBIN. 8.8 g/dL (14.0-18.0); MEAN CORPUSCULAR HEMOGLOBIN 29.1 pg (28.0-32.0); MEAN CORPUSCULAR VOLUME 84.6 fL (80.0-94.0); MEAN PLATELET VOLUME 6.5 fl (7.4-10.4); PLATELET 350 x1000/uL (130-400); RED BLOOD CELL COUNT 3.01 mill/uL (4.7-6.1)
[2020-10-07 10:27] LABS: INR 1.1; PROTHROMBIN TIME 11.8 sec (9.6-11.0)
[2020-10-07 11:34] LABS: CHLORIDE 116 mEq/L (98-107)
[2020-10-07] MEDS: VANCOMYCIN 750 MG PREMIX 150 ML IV SCH (12:11)
[2020-10-07] MEDS ORDERED: POTASSIUM CHLORIDE INJ 40 MEQ in DEXT 5% WATER 250 ML IV NR (14:00)
[2020-10-07 18:30] LABS: PLATELET ESTIMATE NORMAL
[2020-10-08] VITALS (11 sets, daily range): BP systolic 119–172; BP diastolic 49–87
[2020-10-08] MEDS: VANCOMYCIN 750 MG PREMIX 150 ML IV SCH ×3 (00:10→23:32)
[2020-10-08] MEDS: SODIUM CHLORIDE 0.9% 1,000 ML IV SCH ×3 (00:14→21:27)
[2020-10-08] MEDS: MEROPENEM 1,000 MG in SODIUM CHLORIDE 0.9% 100 ML IV SCH ×3 (06:08→21:15)
[2020-10-08 06:44] LABS: CHLORIDE 115 mEq/L (98-107)
[2020-10-08 06:46] LABS: BASOPHILS % 0.3 % (0.0-2.0); EOSINOPHILS % 0.8 % (0.0-5.0); HEMATOCRIT. 25.3 % (42.0-52.0); HEMOGLOBIN. 8.8 g/dL (14.0-18.0); LYMPHOCYTES % 9.1 % (20.0-50.0); MEAN CORPUSCULAR HEMOGLOBIN 29.4 pg (28.0-32.0); MEAN PLATELET VOLUME 6.5 fl (7.4-10.4); MONOCYTES % 5.4 % (2.0-8.0); NEUTROPHILS % 84.4 % (40.0-76.0); PLATELET 340 x1000/uL (130-400); RED BLOOD CELL COUNT 2.98 mill/uL (4.7-6.1); RED CELL DISTRIBUTION WIDTH 17.1 % (11.6-14.6)
[2020-10-08] MEDS ORDERED: IOHEXOL-300 100 ML BOTTLE ONE (07:57)
[2020-10-08] MEDS ORDERED: LIDOCAINE HCL 1% 20ML VIAL (Pyxis) INJ ONE (07:58)
[2020-10-08] MEDS ORDERED: POTASSIUM CHLORIDE INJ 40 MEQ in DEXT 5% WATER 250 ML IV ONE (09:00)
[2020-10-08] MEDS: FAMOTIDINE 20MG TABLET PO SCH (10:26)
[2020-10-08] MEDS: AMLODIPINE 5MG TABLET PO SCH (10:26)
[2020-10-08] MEDS ORDERED: MAGNESIUM 2 G PREMIX 50 ML IV SCH (11:00)
[2020-10-08] MEDS ORDERED: POTASSIUM CHLORIDE INJ 40 MEQ in DEXT 5% WATER 250 ML IV SCH (11:00)
[2020-10-08] MEDS: ACETAMINOPHEN 325MG TABLET PO PRN ×2 (14:22→21:15)
[2020-10-09] VITALS (7 sets, daily range): BP systolic 118–136; BP diastolic 53–77
[2020-10-09] MEDS: MEROPENEM 1,000 MG in SODIUM CHLORIDE 0.9% 100 ML IV SCH ×2 (06:18→15:01)
[2020-10-09] MEDS: SODIUM CHLORIDE 0.9% 1,000 ML IV SCH ×2 (09:00→18:32)
[2020-10-09 09:23] LABS: CHLORIDE 118 mEq/L (98-107)
[2020-10-09] MEDS: AMLODIPINE 5MG TABLET PO SCH (09:51)
[2020-10-09] MEDS: FAMOTIDINE 20MG TABLET PO SCH (09:51)
[2020-10-09] MEDS: VANCOMYCIN 750 MG PREMIX 150 ML IV SCH ×2 (11:30→22:52)
[2020-10-09 11:32] LABS: BASOPHILS % 0.4 % (0.0-2.0); HEMATOCRIT. 24.4 % (42.0-52.0); HEMOGLOBIN. 8.6 g/dL (14.0-18.0); LYMPHOCYTES % 7.9 % (20.0-50.0); MEAN CORPUSCULAR HEMOGLOBIN 29.6 pg (28.0-32.0); MEAN CORPUSCULAR VOLUME 84.5 fL (80.0-94.0); MEAN PLATELET VOLUME 6.3 fl (7.4-10.4); NEUTROPHILS % 86.7 % (40.0-76.0); PLATELET 297 x1000/uL (130-400); RED BLOOD CELL COUNT 2.89 mill/uL (4.7-6.1); RED CELL DISTRIBUTION WIDTH 16.9 % (11.6-14.6)
[2020-10-09] MEDS ORDERED: VANCOMYCIN HCL 1 GM/VIAL ONE (16:22)
[2020-10-09] MEDS ORDERED: POLYMYXIN B SULFATE 500000 UNITS/VIAL ONE (16:23)
[2020-10-09] MEDS ORDERED: HYDROMORPHONE HCL/PF 2MG/ML (OR) ONE (19:41)
[2020-10-09] MEDS ORDERED: CEFAZOLIN SODIUM 1000MG/VIAL ONE (19:42)
[2020-10-09] MEDS ORDERED: ALBUMIN HUMAN 25GM/100ML (25%) IV ONE ×2 (19:44→19:45)
[2020-10-09] MEDS ORDERED: BUPIVACAINE HCL 0.5% (5MG/ML) 50ML ONE (20:18)
[2020-10-09] MEDS ORDERED: HYDROCODONE/ACETAMINOPHEN 5/325MG TABLET PO PRN (20:30)
[2020-10-09] MEDS ORDERED: ONDANSETRON HCL 4MG/2ML INJ IV PRN (20:45)
[2020-10-09] MEDS ORDERED: LABETALOL 5MG/ML SYR 20 MG/4 ML SYRINGE IV PRN (20:45)
[2020-10-09] MEDS ORDERED: HYDROMORPHONE HCL/PF 2MG/ML CPJ IV PRN (20:45)
[2020-10-09] MEDS ORDERED: MEPERIDINE HCL/PF 25MG/ML CPJ IV PRN (20:45)
[2020-10-10] VITALS: BP_SYST 134; BP_SYST 135; BP_DIAS 60; BP_DIAS 73
[2020-10-10] MEDS: MEROPENEM 1,000 MG in SODIUM CHLORIDE 0.9% 100 ML IV SCH ×4 (00:39→22:15)
[2020-10-10 04:00] VITALS: BP 140/59
[2020-10-10] MEDS: SODIUM CHLORIDE 0.9% 1,000 ML IV SCH (05:28)
[2020-10-10 06:46] LABS: HEMOGLOBIN. 8.6 g/dL (14.0-18.0); MEAN CORPUSCULAR HEMOGLOBIN 29.2 pg (28.0-32.0); MEAN CORPUSCULAR VOLUME 85.2 fL (80.0-94.0); MEAN PLATELET VOLUME 6.6 fl (7.4-10.4); PLATELET 307 x1000/uL (130-400); RED BLOOD CELL COUNT 2.93 mill/uL (4.7-6.1); RED CELL DISTRIBUTION WIDTH 16.5 % (11.6-14.6)
[2020-10-10 07:05] LABS: CHLORIDE 113 mEq/L (98-107)
[2020-10-10 08:00] VITALS: BP 138/61
[2020-10-10] MEDS ORDERED: POTASSIUM CHLORIDE 20MEQ TABLET SR PO SCH (08:00)
[2020-10-10] MEDS: FAMOTIDINE 20MG TABLET PO SCH (08:56)
[2020-10-10] MEDS: AMLODIPINE 5MG TABLET PO SCH (08:56)
[2020-10-10 12:00] VITALS: BP 118/86
[2020-10-10] MEDS: POTASSIUM CHLORIDE INJ 40 MEQ in DEXT 5% WATER 250 ML IV SCH ×2 (12:43→17:57)
[2020-10-10 15:22] LABS: PLATELET ESTIMATE NORMAL
[2020-10-10 16:00] VITALS: BP 147/60
[2020-10-10 20:00] VITALS: BP 142/76
[2020-10-11] VITALS: BP 155/66
[2020-10-11] MEDS ORDERED: LORAZEPAM 1MG TABLET PO PRN (00:45)
[2020-10-11] MEDS: SODIUM CHLORIDE 0.9% 1,000 ML IV SCH ×3 (00:59→21:00)
[2020-10-11] MEDS: LORAZEPAM 2MG/ML CPJ IV PRN ×2 (03:07→23:06)
[2020-10-11 04:00] VITALS: BP 163/70
[2020-10-11 07:28] LABS: HEMATOCRIT. 25.6 % (42.0-52.0); HEMOGLOBIN. 8.7 g/dL (14.0-18.0); MEAN CORPUSCULAR HEMOGLOBIN 29.3 pg (28.0-32.0); MEAN CORPUSCULAR VOLUME 85.9 fL (80.0-94.0); MEAN PLATELET VOLUME 6.5 fl (7.4-10.4); PLATELET 300 x1000/uL (130-400); RED BLOOD CELL COUNT 2.98 mill/uL (4.7-6.1); RED CELL DISTRIBUTION WIDTH 16.5 % (11.6-14.6)
[2020-10-11 07:44] LABS: CHLORIDE 115 mEq/L (98-107)
[2020-10-11 08:00] VITALS: BP 142/64
[2020-10-11] MEDS: ENOXAPARIN 100MG/ML SYR SUBCUT SCH ×3 (09:12→23:06)
[2020-10-11] MEDS ORDERED: POTASSIUM CHLORIDE INJ 40 MEQ in DEXT 5% WATER 250 ML IV NR (10:00)
[2020-10-11] MEDS: AMLODIPINE 5MG TABLET PO SCH (10:10)
[2020-10-11] MEDS: FAMOTIDINE 20MG TABLET PO SCH (10:10)
[2020-10-11] MEDS: HYDROMORPHONE HCL/PF 2MG/ML CPJ IV PRN (11:51)
[2020-10-11 12:00] VITALS: BP 153/69
[2020-10-11 14:03] LABS: PLATELET ESTIMATE NORMAL
[2020-10-11 16:00] VITALS: BP 147/79
[2020-10-11 20:00] VITALS: BP 155/70
[2020-10-12] VITALS: BP 150/64
[2020-10-12 04:00] VITALS: BP 155/70
[2020-10-12 07:08] LABS: BASOPHILS % 0.5 % (0.0-2.0); EOSINOPHILS % 0.5 % (0.0-5.0); HEMATOCRIT. 23.2 % (42.0-52.0); LYMPHOCYTES % 10.2 % (20.0-50.0); MEAN CORPUSCULAR HEMOGLOBIN 29.5 pg (28.0-32.0); MEAN CORPUSCULAR VOLUME 85.7 fL (80.0-94.0); MEAN PLATELET VOLUME 6.9 fl (7.4-10.4); NEUTROPHILS % 83.8 % (40.0-76.0); PLATELET 290 x1000/uL (130-400); RED CELL DISTRIBUTION WIDTH 16.7 % (11.6-14.6)
[2020-10-12 07:18] LABS: CHLORIDE 117 mEq/L (98-107)
[2020-10-12 08:00] VITALS: BP 109/42
[2020-10-12] MEDS: ENOXAPARIN 100MG/ML SYR SUBCUT SCH ×2 (09:32→21:38)
[2020-10-12] MEDS: AMLODIPINE 5MG TABLET PO SCH ×2 (09:33→21:38)
[2020-10-12] MEDS: SODIUM CHLORIDE 0.9% 1,000 ML IV SCH ×2 (09:33→17:42)
[2020-10-12] MEDS: FAMOTIDINE 20MG TABLET PO SCH (09:33)
[2020-10-12] MEDS ORDERED: POTASSIUM CHLORIDE 20MEQ/PACKET PO SCH (10:00)
[2020-10-12 12:00] VITALS: BP 129/56
[2020-10-12] MEDS ORDERED: POTASSIUM CHLORIDE INJ 40 MEQ in DEXT 5% WATER 250 ML IV SCH (12:00)
[2020-10-12] MEDS ORDERED: LACTULOSE 20G/30ML UDC PO NR (15:45)
[2020-10-12 16:00] VITALS: BP 143/68
[2020-10-12 20:00] VITALS: BP 138/54
[2020-10-13] VITALS: BP 170/69
[2020-10-13] MEDS: SODIUM CHLORIDE 0.9% 1,000 ML IV SCH ×3 (03:00→22:09)
[2020-10-13 04:00] VITALS: BP_SYST 122; BP_SYST 161; BP_DIAS 66; BP_DIAS 79
[2020-10-13 08:00] VITALS: BP 154/54
[2020-10-13] MEDS: ENOXAPARIN 100MG/ML SYR SUBCUT SCH ×2 (08:53→22:07)
[2020-10-13] MEDS: FAMOTIDINE 20MG TABLET PO SCH (08:54)
[2020-10-13] MEDS: AMLODIPINE 5MG TABLET PO SCH ×2 (08:54→22:07)
[2020-10-13 12:19] VITALS: BP 142/58
[2020-10-13] MEDS: CLONIDINE 0.1MG TABLET PO SCH ×2 (12:20→22:07)
[2020-10-13 13:06] LABS: BASOPHILS % 1.3 % (0.0-2.0); EOSINOPHILS % 0.8 % (0.0-5.0); HEMATOCRIT. 24.7 % (42.0-52.0); HEMOGLOBIN. 8.6 g/dL (14.0-18.0); LYMPHOCYTES % 8.3 % (20.0-50.0); MEAN CORPUSCULAR HEMOGLOBIN 29.6 pg (28.0-32.0); MEAN CORPUSCULAR VOLUME 85.3 fL (80.0-94.0); MEAN PLATELET VOLUME 6.7 fl (7.4-10.4); NEUTROPHILS % 85.6 % (40.0-76.0); PLATELET 316 x1000/uL (130-400); RED BLOOD CELL COUNT 2.89 mill/uL (4.7-6.1); RED CELL DISTRIBUTION WIDTH 16.7 % (11.6-14.6)
[2020-10-13 13:35] LABS: CHLORIDE 111 mEq/L (98-107)
[2020-10-13] MEDS ORDERED: POTASSIUM CHLORIDE 20MEQ TABLET SR PO NR (13:45)
[2020-10-13 16:21] VITALS: BP 148/66
[2020-10-13 20:00] VITALS: BP 134/78
[2020-10-13] MEDS: HYDROMORPHONE HCL/PF 2MG/ML CPJ IV PRN (22:10)
[2020-10-14] VITALS: BP 131/55
[2020-10-14 04:00] VITALS: BP 130/59
[2020-10-14 05:54] LABS: CHLORIDE 110 mEq/L (98-107)
[2020-10-14 06:15] LABS: BASOPHILS % 0.9 % (0.0-2.0); EOSINOPHILS % 1.5 % (0.0-5.0); HEMATOCRIT. 23.8 % (42.0-52.0); HEMOGLOBIN. 8.1 g/dL (14.0-18.0); LYMPHOCYTES % 10.2 % (20.0-50.0); MEAN CORPUSCULAR HEMOGLOBIN 29.1 pg (28.0-32.0); MEAN CORPUSCULAR VOLUME 85.1 fL (80.0-94.0); MONOCYTES % 4.8 % (2.0-8.0); NEUTROPHILS % 82.6 % (40.0-76.0); PLATELET 347 x1000/uL (130-400); RED CELL DISTRIBUTION WIDTH 16.5 % (11.6-14.6)
[2020-10-14 08:00] VITALS: BP 136/65
[2020-10-14] MEDS: SODIUM CHLORIDE 0.9% 1,000 ML IV SCH (09:00)
[2020-10-14] MEDS ORDERED: POTASSIUM CHLORIDE 20MEQ TABLET SR PO NR (09:00)
[2020-10-14] MEDS: ENOXAPARIN 100MG/ML SYR SUBCUT SCH (09:32)
[2020-10-14] MEDS: AMLODIPINE 5MG TABLET PO SCH (09:34)
[2020-10-14] MEDS: FAMOTIDINE 20MG TABLET PO SCH (09:34)
[2020-10-14] MEDS: CLONIDINE 0.1MG TABLET PO SCH (09:34)
[2020-10-14 12:00] VITALS: BP 137/57
[2020-10-14 16:00] VITALS: BP 152/64
[2020-10-14 16:48] VITALS: BP 152/64
== END 2020-10-14 17:47 | DRG 853 ==
LOC: ER 14:01 → EDBEDREQ 15:07 → EDBEDREQTM 17:59 → EDBEDREQSVC 17:59 → EDBEDREQ 17:59 → 6WST 18:34 → EDBEDREQ 18:37 → EDBEDREQTM 18:39 → EDBEDREQSVC 18:39 → ENRESERV 20:13
PROVIDERS: ADMIT Internal Medicine; ATTEND Internal Medicine
PROC: 05HY33Z Insertion of Infusion Device into Upper Vein, Percutaneous Approach (ICD-10-PCS; 2020-10-01)
PROC: B54MZZA Ultrasonography of Right Upper Extremity Veins, Guidance (ICD-10-PCS; 2020-10-01)
PROC: 05HY33Z Insertion of Infusion Device into Upper Vein, Percutaneous Approach (ICD-10-PCS; 2020-10-02)
PROC: B54NZZA Ultrasonography of Left Upper Extremity Veins, Guidance (ICD-10-PCS; 2020-10-02)
PROC: B51NZZA Fluoroscopy of Left Upper Extremity Veins, Guidance (ICD-10-PCS; 2020-10-02)
PROC: 30233N1 Transfusion of Nonautologous Red Blood Cells into Peripheral Vein, Percutaneous Approach (ICD-10-PCS; 2020-10-07)
PROC: 06H03DZ Insertion of Intraluminal Device into Inferior Vena Cava, Percutaneous Approach (ICD-10-PCS; 2020-10-08)
PROC: B519ZZA Fluoroscopy of Inferior Vena Cava, Guidance (ICD-10-PCS; 2020-10-08)
PROC: 0Y6J0Z1 Detachment at Left Lower Leg, High, Open Approach (ICD-10-PCS; principal; 2020-10-09)
DX: A41.9 Sepsis, unspecified organism (principal); E43 Unspecified severe protein-calorie malnutrition; N17.0 Acute kidney failure with tubular necrosis; I82.403 Acute embolism and thrombosis of unspecified deep veins of lower extremity, bilateral; E87.1 Hypo-osmolality and hyponatremia; L97.919 Non-pressure chronic ulcer of unspecified part of right lower leg with unspecified severity; C64.9 Malignant neoplasm of unspecified kidney, except renal pelvis; E11.52 Type 2 diabetes mellitus with diabetic peripheral angiopathy with gangrene; M86.8X7 Other osteomyelitis, ankle and foot; I70.269 Atherosclerosis of native arteries of extremities with gangrene, unspecified extremity; L97.529 Non-pressure chronic ulcer of other part of left foot with unspecified severity; E11.69 Type 2 diabetes mellitus with other specified complication; E78.00 Pure hypercholesterolemia, unspecified; D64.9 Anemia, unspecified; I87.2 Venous insufficiency (chronic) (peripheral); I87.8 Other specified disorders of veins; F17.200 Nicotine dependence, unspecified, uncomplicated; E78.5 Hyperlipidemia, unspecified; E87.6 Hypokalemia; I25.10 Atherosclerotic heart disease of native coronary artery without angina pectoris; I48.0 Paroxysmal atrial fibrillation; I34.0 Nonrheumatic mitral (valve) insufficiency; L89.90 Pressure ulcer of unspecified site, unspecified stage; Z20.822 Contact with and (suspected) exposure to COVID-19; M24.559 Contracture, unspecified hip; Z79.02 Long term (current) use of antithrombotics/antiplatelets; Z79.01 Long term (current) use of anticoagulants; Z79.899 Other long term (current) drug therapy; Z79.82 Long term (current) use of aspirin; I25.2 Old myocardial infarction; Z86.73 Personal history of transient ischemic attack (TIA), and cerebral infarction without residual deficits; Z68.30 Body mass index [BMI] 30.0-30.9, adult; Z95.5 Presence of coronary angioplasty implant and graft; Z85.528 Personal history of other malignant neoplasm of kidney; Z86.718 Personal history of other venous thrombosis and embolism; Z89.612 Acquired absence of left leg above knee; Z95.828 Presence of other vascular implants and grafts; I10 Essential (primary) hypertension
CPT/HCPCS: 36415; 36573; 37191; 70486; 71045; 73590; 73630; 80048; 80053; 80202; 82728; 83605; 83735; 84145; 84484; 85025; 85384; 86850; 86900; 86920; 87426; 88307; 88311; 93005; 93306; 93970; 99291; C1725; C1766; C1769; C1880; C1887; C1893; J0360; J0690; J0696; J1170; J1644; J1650; J2060; J2185; J2270; J2405; J2543; J3370; J3475; J3480; J3490; J7030; J7040; J7050; J7060; P9016; P9047; Q9967

== ENCOUNTER 2023-10-21 08:23 | Emergency (ER) | payer MEDICARE, MEDICAID ==
[~2023-10-21] VITALS: Ht 170.2 cm; Wt 70.0 kg
[~2023-10-21 08:23] MED LIST changes: +FAMO20TA8 PO; -GABA-533 PO; +GABA-534 PO; -LOSA100T32 PO; +LOSA100T33 PO; +LYR25 PO; +METO5TAB2 PEG; +MIRT-89 PO; +SUCR1TAB30 GT
[2023-10-21 08:27] VITALS: O2SAT 95
[2023-10-21 09:02] LABS: BG BASE EXCESS -6.5 mmol/L (-2.0-2.0); BG CARBOXYHEMOGLOBIN 0.3 % (0.5-1.5); BG DEOXYHEMOGLOBIN 2.2 % (0.0-5.0); BG FRACTION INSPIRED OXYGEN 100; BG HCO3 ACT 20.3 mmol/L (22.0-26.0); BG METHEMOGLOBIN 0.6 % (0.0-1.5); BG OXYGEN SATURATION 97.8 % (92.0-98.5); BG OXYHEMOGLOBIN 96.9 % (94.0-97.0); BG PCO2 46.5 mmHg (35.0-45.0); BG PH 7.257 (7.350-7.450); BG PO2 119.8 mmHg (75.0-100.0); BG SAMPLE SITE RIGHT RADIAL; BG TOTAL HEMOGLOBIN 8.3 g/dL (12.0-18.0); BG VENT MODE MASK - NRB
[2023-10-21] MEDS: SODIUM CHLORIDE 0.9% 500 ML IV ONE ×3 (09:18→10:18)
[2023-10-21 09:32] LABS: CHLORIDE 108 mEq/L (98-107); SODIUM 139 mEq/L (136-145)
[2023-10-21 09:33] LABS: CALCIUM 8.5 mg/dL (8.7-10.4); CARBON DIOXIDE 22 mEq/L (21-32); INR 1.2; PROTHROMBIN TIME 13.6 sec (9.6-11.0)
[2023-10-21 09:35] VITALS: BP 105/54; PULSE 120; RESP 42; TEMP 101.5
[2023-10-21 09:36] LABS: DIFFERENTIAL COMMENT 1; MEAN CORPUSCULAR HEMOGLOBIN 28.5 pg (28.0-32.0); MEAN CORPUSCULAR HGB CONC 31.2 g/dL (31.0-37.0); MEAN CORPUSCULAR VOLUME 91.3 fL (80.0-94.0); MEAN PLATELET VOLUME 6.6 fl (7.4-10.4); PLATELET 530 x1000/uL (130-400); RED BLOOD CELL COUNT 2.43 mill/uL (4.7-6.1); RED CELL DISTRIBUTION WIDTH 17.5 % (11.6-14.6)
[2023-10-21 09:37] LABS: HEMATOCRIT. 22.2 % (42.0-52.0); HEMOGLOBIN. 6.9 g/dL (14.0-18.0); WHITE BLOOD COUNT 60.9 x1000/uL (4.5-11.0)
[2023-10-21 09:38] LABS: CREATININE 1.2 mg/dL (0.6-1.3); GLUCOSE 208 mg/dL (70-105); UREA NITROGEN BLOOD 21 mg/dL (9-23)
[2023-10-21 09:40] LABS: AMMONIA < 17 uMol/L (<32); CREATINE KINASE 209 IU/L (46-171)
[2023-10-21 09:42] LABS: CLARITY URINE TURBID (CLEAR); COLOR URINE DARK YELLOW (YELLOW); GLUCOSE URINE NEGATIVE (NEGATIVE); KETONES URINE TRACE (NEGATIVE); LEUKOCYTE ESTERASE URINE 3+ (NEGATIVE); NITRITE URINE NEGATIVE (NEGATIVE); OCCULT BLOOD URINE 3+ (NEGATIVE); PH URINE 8.5 (4.5-8.0); PROTEIN URINE 2+ (NEGATIVE); SPECIFIC GRAVITY URINE 1.025 (1.005-1.030)
[2023-10-21 09:52] LABS: TROPONIN I HIGH SENSITIVITY 172 ng/L (3.0-53)
[2023-10-21 09:53] LABS: LACTIC ACID 6.8 mmol/L (0.4-2.0)
[2023-10-21 09:53] LABS: RBC URINE TNTC /hpf (0-2); WBC URINE TNTC /hpf (0-2)
[2023-10-21 09:54] LABS: BACTERIA URINE 4+
[2023-10-21 09:55] LABS: SQUAMOUS EPITHELIAL CELL URINE NONE SEEN /lpf (RARE/1+)
[2023-10-21] MEDS: PIPERACILLIN/TAZO 3.375G/50ML 50 ML IV SCH (10:18)
[2023-10-21 12:18] LABS: NUCLEATED RED BLOOD CELLS 1 /100 WBC; PLATELET ESTIMATE INCREASED; TOXIC VACUOLATION 2+
== END 2023-10-21 10:48 ==
LOC: ER 08:23
DX: A41.9 Sepsis, unspecified organism (principal); R65.20 Severe sepsis without septic shock; J69.0 Pneumonitis due to inhalation of food and vomit; I46.9 Cardiac arrest, cause unspecified; I48.91 Unspecified atrial fibrillation; I25.2 Old myocardial infarction; I10 Essential (primary) hypertension; E78.00 Pure hypercholesterolemia, unspecified; E11.9 Type 2 diabetes mellitus without complications; Z86.73 Personal history of transient ischemic attack (TIA), and cerebral infarction without residual deficits; Z79.899 Other long term (current) drug therapy
CPT/HCPCS: 80048; 81003; 82140; 82550; 82962; 83880; 83605; 83690; 85025; 85610; 86850; 86900; 86901; 87040; 87086; 87186; 84484; 87804 ×2; 87077; 36415; 84145; 71045; 82805; 82375; 31500 ×2; 93005; 92950; 96361; 96365; 99291; 36600; J2543; J7040